=== PATIENT | male | born 1980 | race Caucasian/White ===

== ENCOUNTER 2016-11-28 20:14 | Emergency (ER) | payer OTHER ==
[2016-11-28 21:04] VITALS: BP 98/62
[2016-11-28] MEDS ORDERED: HYDROcodone/ACETAMIN 5-325 MG* 1 TAB PO ONE ×2 (21:28)
[2016-11-28] MEDS ORDERED: Ondansetron ODT TAB* 4 MG PO ONE (21:28)
[2016-11-28] MEDS ORDERED: Ketorolac INJ* 60 MG/2 ML VIAL IM ONE (21:28)
--- NOTE | 2016-11-28 21:34 | UC ---
Complaint Male HPI - HPI Summary HPI Summary: history of kidney stones, one documented by CT in 2004. Feels the same pain since 4pm today on right side. Bloody urine after onset of pain. No fever. Nausea but no vomiting. Has not required any surgical intervention to pass his stones. - History of Current Complaint Chief Complaint: UCGeneralIllness Stated Complaint: RT SIDED PAIN, HEMATURIA Time Seen by Provider: 11/28/16 21:21 Hx Obtained From: Patient, Family/Cytotechnologist/Histotechnologist - Onset/Duration: Gradual Onset, Lasting Hours - 6 Timing: Constant Severity Initially: Mild Severity Currently: Moderate Location: Flank - right Character: Sharp, Colicy Aggravating Factor(s): Nothing Alleviating Factor(s): Nothing Associated Signs And Symptoms: Positive: Back Pain, Hematuria, Appetite - dec, Nausea. Negative: Dysuria, Constipation, Blood in Stool, Rectal Pain, Vomiting( # Of Episodes =), Penile Swelling, Penile Discharge - Allergies/Home Medications Allergies/Adverse Reactions: Allergies Allergy/AdvReac Type Severity Reaction Status Date / Time No Known Allergies Allergy Verified 11/28/16 21:04 PMH/Surg Hx/FS Hx/Imm Hx Previously Healthy: Yes - Surgical History Surgical History: None - Family History Known Family History: Negative: Renal Disease - Social History Occupation: Employed Full-time Lives: With Family Alcohol Use: Occasionally Substance Use Type: None Smoking Status (MU): Heavy Every Day Tobacco Smoker Review of Systems Constitutional: Negative Skin: Negative Eyes: Negative ENT: Negative Respiratory: Negative Cardiovascular: Negative Gastrointestinal: Negative Genitourinary: Hematuria, Frequency Motor: Negative Neurovascular: Negative Musculoskeletal: Negative Neurological: Negative Psychological: Negative All Other Systems Reviewed And Are Negative: Yes Physical Exam Triage Information Reviewed: Yes Appearance: Well-Appearing - not writhing around in pain, appears comfortable, No Pain Distress, Well-Nourished, Thin Vital Signs: Initial Vital Signs Temp 98.9 F 11/28/16 20:59 Pulse 68 11/28/16 20:59 Resp 18 11/28/16 20:59 BP 98/62 11/28/16 20:59 Pulse Ox 100 11/28/16 20:59 Vital Signs Reviewed: Yes Eye Exam: Normal ENT: Positive: Hearing grossly normal, Pharynx normal. Negative: Muffled/ hoarse voice Neck exam: Normal Respiratory Exam: Normal Cardiovascular Exam: Normal Abdomen Description: Positive: Nontender, No Organomegaly, Soft, CVA Tenderness (R) - moderate. Negative: Distended, Guarding, Hernia @, Hepatomegaly, McBurney 's Point Tenderness, Peritoneal Signs, Pulsatile Mass, Splenomegaly Bowel Sounds: Positive: Present Musculoskeletal Exam: Normal Neurological Exam: Normal Psychological Exam: Normal Skin Exam: Normal Diagnostics - Laboratory Diagnostic Studies Completed/Ordered: U/A grossly bloody Complaint Male Course/Dx - Differential Dx/Diagnosis Provider Diagnoses: kidney stone Discharge - Discharge Plan Condition: Stable Disposition: HOME Prescriptions: HYDROcodone/ACETAMIN 5-325 MG* [Mcclelland 5-325 TAB*] 1 - 2 tab PO Q4H PRN #30 tab MDD 6 tab PRN Reason: Pain Promethazine TAB* [Phenergan TAB*] 25 mg PO Q8H PRN #7 tab PRN Reason: Nausea Patient Education Materials: Kidney Stones (ED) Forms: *Work Release Referrals: Kaitlynn Selby MD [Primary Care Provider] - Additional Instructions: Go to ER if you have pain beyond 2 days from now, or if fever over 102, or worsening pain.
== END 2016-11-28 22:06 | disposition home or self-care (01) ==
LOC: UCCORT 20:14
DX: N20.0 Calculus of kidney (principal); F17.210 Nicotine dependence, cigarettes, uncomplicated; Z87.442 Personal history of urinary calculi
CPT/HCPCS: 96372; 99213; A9270-GY; G0463; J1885

== ENCOUNTER 2017-07-13 11:47 | Emergency (ER) | payer OTHER ==
[2017-07-13 11:58] VITALS: BP 133/80
[2017-07-13] MEDS ORDERED: cefTRIAXone VIAL(*) 250 MG VIAL IM ONE (12:18)
[2017-07-13] MEDS ORDERED: Lidocaine 1% INJ* 10 MG/ML 30 ML SDV INJ ONE (12:19)
[2017-07-13] MEDS ORDERED: Tetan/Diph/Pertus SYR(Tdap)* 0.5 ML SYR(BOOSTRIX) use SYR IM ONE (12:19)
[2017-07-13] MEDS ORDERED: Lidocaine 1% MPF* 2 ML VIAL ONE (12:32)
[2017-07-13] MEDS ORDERED: Lidocaine 1% MPF* 2 ML VIAL INJ ONE (12:33)
--- NOTE | 2017-07-13 12:48 | UC ---
Skin Complaint HPI - HPI Summary HPI Summary: LAST MONDAY NOTICED PIMPLE ON LEFT SIDE OF NOSE; YESTERDAY REDNESS SWELLING TENDERNESS OF NOSE AND LEFT CHEEK (MAXILLA). NO KNOWN HISTORY OF MRSA. NO DRAINAGE. 99.4F FEVER. - History of Current Complaint Chief Complaint: UCSkin Time Seen by Provider: 07/13/17 12:06 Stated Complaint: NOSE/EYE SWELLING Hx Obtained From: Patient, Family/County Tax Assessor Onset/Duration: Lasting Days Skin Exposure Onset/Duration: Days Ago Onset Severity: Moderate Current Severity: Moderate Location: Discrete, Face, Nose Character: Redness, Raised, Painful Aggravating: Touch Associated Signs & Symptoms: Positive: Fever, Tenderness, Red Streaks. Negative : Nausea, Vomiting, Cough, Hoarseness, Throat Tightening, Drainage - Allergy/Home Medications Allergies/Adverse Reactions: Allergies Allergy/AdvReac Type Severity Reaction Status Date / Time No Known Allergies Allergy Verified 07/13/17 11:58 Review of Systems Constitutional: Fever Skin: Other - LEFT NOSE AND MAXILLA ERYTHEMATOUS INDURATED AREA Eyes: Negative ENT: Negative Respiratory: Negative Cardiovascular: Negative Gastrointestinal: Negative Genitourinary: Negative Motor: Negative Neurovascular: Negative Musculoskeletal: Negative Neurological: Negative Psychological: Negative Is Patient Immunocompromised?: No All Other Systems Reviewed And Are Negative: Yes PMH/Surg Hx/FS Hx/Imm Hx Previously Healthy: Yes - Surgical History Surgical History: None - Family History Known Family History: Negative: Diabetes, Renal Disease - Social History Occupation: Employed Full-time Lives: With Family Alcohol Use: None Substance Use Type: None Smoking Status (MU): Heavy Every Day Tobacco Smoker Type: Cigarettes Amount Used/How Often: 1/2 ppd Cessation Counseling: Patient Advised to Stop - Immunization History Most Recent Influenza Vaccination: no Physical Exam Triage Information Reviewed: Yes Appearance: Well-Appearing, Well-Nourished, Pain Distress - MILD, Thin Vital Signs: Initial Vital Signs Temp 99.4 F 07/13/17 11:49 Pulse 92 07/13/17 11:49 Resp 14 07/13/17 11:49 BP 133/80 07/13/17 11:49 Pulse Ox 100 07/13/17 11:49 Vital Signs Reviewed: Yes Eye Exam: Normal ENT Exam: Normal ENT: Positive: Normal ENT inspection, Hearing grossly normal, TMs normal Dental Exam: Normal Neck exam: Normal Neck: Positive: Supple, Nontender, No Lymphadenopathy Respiratory Exam: Normal Respiratory: Positive: Chest non-tender, Lungs clear, Normal breath sounds, No respiratory distress, No accessory muscle use Cardiovascular Exam: Normal Cardiovascular: Positive: RRR, No Murmur, Pulses Normal, Brisk Capillary Refill Abdominal Exam: Normal Musculoskeletal Exam: Normal Musculoskeletal: Positive: Strength Intact, ROM Intact Neurological Exam: Normal Psychological Exam: Normal Skin: Positive: Other - ERYTHEMATOUS INDURATED AREA LEFT NOSE AND MAXILLA Course/Dx - Differential Diagnoses - Skin Complaint Differential Diagnoses: Abscess, Cellulitis, MRSA - Diagnoses Provider Diagnoses: CELLULITIS NOSE AND LEFT MAXILLA Discharge - Discharge Plan Condition: Stable Disposition: HOME Prescriptions: Clindamycin Cap(NF) [Clindamycin Cap 300 mg Cap(NF)] 300 mg PO TID #30 cap Patient Education Materials: Cellulitis (ED) Forms: *Work Release Referrals: ZIA Nix [Primary Care Provider] - Images Head: 1 - ERYTHEMATOUS INDURATED AREA LEFT NOSE AND MAXILLA
== END 2017-07-13 13:07 | disposition home or self-care (01) ==
LOC: UCCORT 11:47
DX: J34.0 Abscess, furuncle and carbuncle of nose (principal); L03.211 Cellulitis of face; F17.210 Nicotine dependence, cigarettes, uncomplicated
CPT/HCPCS: 90471; 90715; 96372; 99212; G0463; J0696; J2001